=== PATIENT | male | born 1990 | race African-American/Black ===

== ENCOUNTER 2022-06-07 11:03 | Emergency (ER) | payer SELFPAY ==
--- NOTE | 2022-06-07 11:12 | ED.GENADULT ---
HPI - General Adult General Chief complaint: Unspecified Stated complaint: wellness check up for work Time Seen by Provider: 06/07/22 11:13 Source: patient, RN notes reviewed and old records reviewed Mode of arrival: ambulatory Limitations: no limitations History of Present Illness HPI narrative: 31-year-old male presents to the [facility] requesting a physical form filled out for his job. Patient has no complaints. Stated he just needed a physical form sent, explained to patient we do not do physicals here. Mom stated he needed filled out by his PCP. Patient left room. Related Data Home Medications Medication Instructions Recorded Confirmed No Home Medications 06/07/22 06/07/22 Allergies Allergy/AdvReac Type Severity Reaction Status Date / Time No Known Allergies Allergy Unknown Verified 06/07/22 11:10 Review of Systems Review of Systems: All systems reviewed & are unremarkable except as noted in HPI and below Constitutional: Constitutional: Reports no additional constitutional complaints, Denies chills and Denies fever(s) Eyes: Eyes: Reports no additional eye complaints ENT: Reports system reviewed and no additional complaints, except as documented Cardiovascular: Cardiovascular: Reports no additional cardiovascular complaints Respiratory: Respiratory: Reports no additional respiratory complaints Gastrointestinal: Gastrointestinal: Reports no additional gastrointestinal complaints Musculoskeletal: Musculoskeletal: Reports no additional musculoskeletal complaints Integumentary/Breasts: Skin/Breast: Reports system reviewed and no additional complaints, except as docu Neurologic: Reports system reviewed and no additional complaints, except as documented Psychiatric: Psychiatric: Reports no additional psychiatric complaints Allergic/Immunologic: Allergic/Immunologic: Reports no additional allergic/immunologic complaints PMFSH Past Medical History Medical History (Updated 06/07/22 @ 14:54 by Yesenia Almanza APRN) Bronchitis As child Surgical History Surgical History No pertinent past surgical history Social History Social History Smoking status: Never smoker Alcohol intake: current Alcohol use details: Occasional Gender identity (if verbalized by the patient): Male Comments At the time of my signature, I reviewed and agree with the nursing past medical, surgical, social, and family history. There is no relevant family history pertinent to the patient complaint. Exam Const: General: healthy appearing, no acute distress and alert Nutritional Appearance: well nourished Orientation/consciousness: patient oriented x3 Limitations: no limitations HENMT: Head: normal to inspection Ears: external ears normal Eyes: General: appearance normal, both eyes and all related structures Pupils: Equal, round and reactive pupils present Neck: Neck: normal visual inspection Resp: Effort & Inspection: normal respiratory effort and no use of accessory muscles Cardio: Rate: regular rate Skin: General skin exam: normal color Rashes: no rashes Wounds: no wounds Neuro: General: patient oriented x3, moves all extremities, no meningeal signs and no focal motor deficits Cranial nerves: Yes Equal, round and reactive pupils present Speech: normal speech Gait exam (Neuro): Normal gait present Extrem: General: normal to inspection and full ROM Psych: Appearance: grossly normal and well kempt Mental Status: mental status grossly normal Affect: normal affect Attitude: cooperative Thought content: Yes Normal thought content present Course Course Emergency Course: Some parts of this dictation were generated by voice recognition software and may contain typographical and/or grammatical inaccuracies. Level of Care: Express Care Visit Vital Signs Vital signs: Vital Signs Temperatur
[2022-06-07 11:13] VITALS: BP 127/81; PULSE 55; RESP 12; TEMP 37; O2SAT 100
== END 2022-06-07 11:16 | disposition left against medical advice (07) ==
PROVIDERS: Emergency Provider Nurse Practitioner; PCP Emergency Medicine
DX: Z53.21 Procedure and treatment not carried out due to patient leaving prior to being seen by health care provider (principal)
CPT/HCPCS: 99199

== ENCOUNTER 2023-07-24 15:27 | Outpatient (CLI) | payer BC, SELFPAY ==
--- NOTE | ~2023-07-24 | XR_ITS ---
EXAMINATION: XR finger 3rd RT min 2V INDICATION: Right third finger pain, initial encounter TECHNIQUE: Three views of the right third finger are obtained. COMPARISON: None available FINDINGS: There is an oblique intra-articular fracture at the medial base of the third middle phalanx . The fracture appears to involve less than 50% of the articular surface. There is soft tissue swelli ng near the fracture. No additional fracture is identified. IMPRESSION: 1. Oblique intra-articular fracture at the medial base of the third middle phalanx. Reviewed, dictated and finalized at location F. IMPRESSION: 1. Oblique intra-articular fracture at the medial base of the third middle phal anx.
== END 2023-07-24 15:28 | disposition home or self-care (01) ==
LOC: CHSIMG 15:30
PROVIDERS: PCP Emergency Medicine; Visit Provider Emergency Medicine
DX: S62.622A Displaced fracture of middle phalanx of right middle finger, initial encounter for closed fracture (principal); M79.644 Pain in right finger(s)
CPT/HCPCS: 73140